=== PATIENT | male | born 1990 | race Caucasian/White ===

== ENCOUNTER 2017-05-08 01:42 | Emergency (ER) | payer BC ==
[~2017-05-08] VITALS: Ht 177.8 cm; Wt 72.6 kg
--- NOTE | 2017-05-08 02:30 | NUR ---
Patient reports was sleeping, then suddenly felt intense pain on the back, ambulated to ER.
--- NOTE | 2017-05-08 02:35 | NUR ---
Dr. Chung at bedside for MSE.
[2017-05-08] MEDS ORDERED: KETOROLAC TROMETHAMINE 15 MG INJ ONE (02:44)
[2017-05-08] MEDS ORDERED: IV NORMAL SALINE 1000 ML BAG IV ONE (02:45)
[2017-05-08] MEDS ORDERED: KETOROLAC TROMETHAMINE 15 MG INJ IV ONE (02:45)
[2017-05-08 02:54] LABS: BASOPHILS % (AUTO) 0.6 % (0.0-2.0); EOSINOPHILS # (AUTO) 0.2 K/uL (0.0-0.7); EOSINOPHILS % (AUTO) 2.6 % (0.0-7.0); HEMATOCRIT 45.2 % (36.7-47.1); HEMOGLOBIN 15.3 g/dL (12.5-16.3); LYMPHOCYTES # (AUTO) 2.2 K/uL (20.0-40.0); LYMPHOCYTES % (AUTO) 30.6 % (20.5-51.5); MEAN CORPUSCULAR HEMOGLOBIN 30.3 uug (23.8-33.4); MEAN CORPUSCULAR HGB CONC 34 g/dL (32.5-36.3); MEAN CORPUSCULAR VOLUME 89.5 fL (73.0-96.2); MONOCYTES # (AUTO) 0.4 K/uL (2.0-10.0); MONOCYTES % (AUTO) 5.9 % (0.0-11.0); NEUTROPHILS # (AUTO) 4.3 K/uL (1.8-8.9); NEUTROPHILS % (AUTO) 60.3 % (38.5-71.5); PLATELET COUNT (AUTO) 212 K/uL (152-348); RED BLOOD CELL COUNT(AUTO) 5.05 MIL/uL (4.06-5.63); WHITE BLOOD COUNT (AUTO) 7.2 K/uL (3.6-10.2)
[2017-05-08 02:55] LABS: *BILIRUBIN,URIN NEGATIVE (NEGATIVE); *BLOOD, URINE 3+ (NEGATIVE); *COLOR,URINE YELLOW (YELLOW); *KETONES,URINE NEGATIVE (NEGATIVE); *PROTEIN,URINE NEGATIVE (NEGATIVE); *UROBILINOGEN,URINE 0.2 E.U./dl (NORMAL); LEUKOCYTE ESTERASE ,URINE NEGATIVE (NEGATIVE); NITRITE, URINE NEGATIVE (NEGATIVE); UGLUCOSE NEGATIVE (NEGATIVE)
[2017-05-08 03:02] LABS: *CLARITY,URINE HAZY (CLEAR)
[2017-05-08 03:07] LABS: BILIRUBIN,DIRECT 0.2 mg/dL (0.0-0.2); BILIRUBIN,TOTAL 0.7 mg/dL (0.2-1.0); CREATININE 1.4 mg/dL (0.6-1.3); POTASSIUM 3.7 mmol/L (3.5-5.1); TOTAL PROTEIN, SERUM 7.9 g/dL (6.4-8.2)
[2017-05-08 03:08] LABS: BACTERIA,URINE NF /HPF (NONE SEEN); RBC,URINE 80-100 /HPF (0-3); WBC,URINE NONE SEEN /HPF (0-3)
[2017-05-08] MEDS ORDERED: TAMSULOSIN HCL 0.4 MG CAP.SR.24H PO ONE (03:45)
[2017-05-08] MEDS ORDERED: TAMSULOSIN HCL 0.4 MG CAP.SR.24H ONE (03:48)
--- NOTE | 2017-05-08 04:06 | NUR ---
Patient discharged to home in stable conditon. Written and verbal after care instructions given. Patient verbalizes understanding of instructions. Patient ambulated out of ER with steady gait, IV discontinued, patient reports feeling better, no more pain, VSS, no acute signs of distress, all belongings taken.
[2017-05-08 04:12] VITALS: BP 134/70
== END 2017-05-08 04:13 | disposition home or self-care (01) ==
LOC: ER 01:45
DX: N23 Unspecified renal colic (principal)
CPT/HCPCS: 36415; 85025; A4663; J1885; J7030